=== PATIENT | male | born 1985 | race Caucasian/White ===

== ENCOUNTER 2021-10-28 12:33 | Emergency (ER) | payer BC ==
[2021-10-28 13:16] VITALS: BP 130/83; PULSE 59
== END 2021-10-28 13:43 | disposition home or self-care (01) ==
LOC: JP.ED 12:33
DX: K08.89 Other specified disorders of teeth and supporting structures (principal); Z88.0 Allergy status to penicillin; Z98.818 Other dental procedure status; Z86.16 Personal history of COVID-19
CPT/HCPCS: 99282; 99283

== ENCOUNTER 2021-10-29 15:25 | Emergency (ER) | payer BC ==
[2021-10-29] MEDS ORDERED: oxyCODONE 5 MG Tab PO ONE (15:30)
[2021-10-29 15:43] VITALS: BP 120/63; PULSE 73
== END 2021-10-29 16:20 | disposition home or self-care (01) ==
LOC: JP.ED 15:25
DX: G89.18 Other acute postprocedural pain (principal); K08.89 Other specified disorders of teeth and supporting structures; Z98.818 Other dental procedure status; Z88.0 Allergy status to penicillin; Z86.16 Personal history of COVID-19
CPT/HCPCS: 99282; A9270